=== PATIENT | male | born 1980 | race African-American/Black ===

== ENCOUNTER 2022-02-07 01:33 | Emergency (ER) | payer OTHER ==
[~2022-02-07] VITALS: Ht 180.3 cm; Wt 105.0 kg
[2022-02-07 01:40] VITALS: BP 115/74
[2022-02-07 03:23] LABS: CLARITY URINE CLEAR (CLEAR); COLOR URINE YELLOW (YELLOW); KETONES URINE TRACE (NEGATIVE); LEUKOCYTE ESTERASE URINE NEGATIVE (NEGATIVE); NITRITE URINE NEGATIVE (NEGATIVE); OCCULT BLOOD URINE NEGATIVE (NEGATIVE); PROTEIN URINE NEGATIVE (NEGATIVE); SPECIFIC GRAVITY URINE 1.015 (1.005-1.030); UROBILINOGEN URINE 0.2 E.U./dL (0.2-1.0)
[2022-02-07] MEDS ORDERED: PHEN-910 PO (04:08)
[2022-02-11 04:08] LABS: NEISSERIA GONORRHOEAE NAA Negative (Negative)
== END 2022-02-07 04:32 | disposition home or self-care (01) ==
LOC: ER 01:33
DX: N34.2 Other urethritis (principal); I10 Essential (primary) hypertension; E78.00 Pure hypercholesterolemia, unspecified
CPT/HCPCS: 81003; 87491; 87591; 99283